=== PATIENT | female | born 1965 | race American Indian/Alaskan Native ===

== ENCOUNTER 2018-01-04 18:19 | Emergency (ER) | payer MEDICARE ==
[2018-01-04] MEDS ORDERED: ASPIRIN PO ONE (18:28)
[2018-01-04 18:50] LABS: Basophils # (Auto) 0.1 K/mm3 (0.0-0.1); Basophils % (Auto) 0.6 % (0.0-1.8); Eosinophils # (Auto) 0.1 K/mm3 (0.0-0.4); Eosinophils % (Auto) 1.2 % (0.0-4.3); Hematocrit 42.9 % (30.3-42.9); Hemoglobin 14.2 gm/dl (10.1-14.3); Lymphocytes # (Auto) 3.3 K/mm3 (1.2-5.4); Lymphocytes % (Auto) 32.5 % (13.4-35.0); Mean Corpuscular HGB Conc 33 % (30-34); Mean Corpuscular Hemoglobin 29 pg (28-32); Mean Corpuscular Volume 87 fl (79-97); Monocytes # (Auto) 0.5 K/mm3 (0.0-0.8); Monocytes % (Auto) 5.1 % (0.0-7.3); Platelet Count 388 K/mm3 (140-440); Red Blood Count 4.93 M/mm3 (3.65-5.03); Red Cell Distribution Width 13.7 % (13.2-15.2)
[2018-01-04 19:10] LABS: BUN/Creatinine Ratio 10; Blood Urea Nitrogen 11 mg/dL (7-17); Calcium 9.9 mg/dL (8.4-10.2); Hemolysis Index 11
[2018-01-04] MEDS ORDERED: TYLENOL #3 PO ONE (21:19)
[2018-01-04] MEDS ORDERED: TYLENOL PO ONE (22:09)
[2018-01-04] MEDS ORDERED: TYLENOL ONE (22:15)
--- NOTE | 2018-01-04 22:16 | XRay Report ---
FINAL REPORT PROCEDURE: XR CHEST 2 VIEW TECHNIQUE: PA and lateral chest radiographs were obtained. CPT 99780 HISTORY: CHEST PAIN IN UPPER LEFT. COMPARISON: No prior studies are available for comparison. FINDINGS: Heart: Normal. Mediastinum/Vessels: Normal. Lungs/Pleural space: Normal. Bony thorax: No acute osseous abnormality. Other: IMPRESSION: Normal examination.
--- NOTE | 2018-01-04 22:54 | Emergency Department Report ---
HPI - General Chief Complaint: Chest Pain Time Seen by Provider: 01/04/18 20:20 - HPI HPI: The patient is a 52-year-old female who presents for evaluation of left neck pain. 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 She states that after laying down, she noticed pain in the left lower neck when she got up. She states that the pain radiated to the left shoulder and left upper chest, and also to the right jaw. She states that the pain is currently mild in severity, and was sharp in quality. She denies trauma or injury to the head , neck, shoulder, or chest. She also denies headache, posterior neck pain, pressure-like chest pain, dyspnea, cough, hemoptysis, paresthesias or motor weakness in the arms or legs, syncope, unilateral leg swelling, history of DVT or PE, history of active cancer. ED Past Medical Hx - Past Medical History Hx Diabetes: Yes - Surgical History Hx Cholecystectomy: Yes Hx Appendectomy: Yes Additional Surgical History: total hysterectomy,double mastectomy, multiple breast reconstrution with infections, left shoulder - Social History Smoking Status: Never Smoker Substance Use Type: None - Medications Home Medications: Home Medications Medication Instructions Recorded Confirmed Last Taken Type Acetaminophen/Codeine [Tylenol #3] 1 tab PO Q6H PRN #15 tab 01/04/18 Unknown Rx Cyclobenzaprine HCl [Flexeril 5 MG 5 mg PO Q8HR PRN #15 tab 01/04/18 Unknown Rx TAB] ED Review of Systems ROS: Stated complaint: ARM/NECK PAIN Other details as noted in HPI Constitutional: denies: fever ENT: denies: throat or neck pain Respiratory: denies: cough, shortness of breath Cardiovascular: reports chest pain Endocrine: denies unexplained weight loss or gain Gastrointestinal: denies: abdominal pain, nausea Genitourinary: denies: dysuria Musculoskeletal: reprots neck pain denies: leg swelling Skin: denies: rash Neurological: denies: headache Hematological/Lymphatic: denies: easy bleeding or easy bruising Psych: denies sadness or hopelessness Physical Exam - Physical Exam Vital Signs: Vital Signs 01/04/18 01/04/18 18:23 20:04 Temperature 98.6 F 98.1 F Pulse Rate 112 H 91 H Respiratory 18 15 Rate Blood Pressure 129/89 Blood Pressure 110/74 [Left] O2 Sat by Pulse 100 97 Oximetry Physical Exam: General: well-nourished, well-developed, no acute distress Head: Normocephalic, atraumatic Eyes: normal sclera ENT: Mucous membranes are pink and moist Neck: left SCM tenderness to palpation present, pain is elicited with rotation of the neck to the left, no midline bony tenderness overlying the cervical thoracic spinous processes, no spinous step-off or obvious deformity, trachea midline, neck supple, No neck stiffness, no cervical adenopathy Respiratory: Breath sounds equal bilaterally, no wheezing, rales, or rhonchi Cardio: S1 and S2 present, no murmurs, rubs, gallops, capillary refill is brisk Abdomen: Normoactive bowel sounds, soft abdomen, no tenderness Chest WALL/Back: No tenderness to palpation of the chest wall, no CVA tenderness with percussion Musc: No sensation or motor deficit in the arms or legs bilaterally, pulses intact distally as well, No pitting edema Skin: No rash Neuro: no facial drooping, normal speech Psych: Normal affect ED Course Vital Signs 01/04/18 01/04/18 18:23 20:04 Temperature 98.6 F 98.1 F Pulse Rate 112 H 91 H Respiratory 18 15 Rate Blood Pressure 129/89 Blood Pressure 110/74 [Left] O2 Sat by Pulse 100 97 Oximetry ED Medical Decision Making - Lab Data Result diagrams: 01/04/18 18:30 01/04/18 18:30 - Medical Decision Making The patient was seen and examined by myself. The patient is placed on a cardiac rehab nurse and continuous pulse ox. On initial evaluation, the patient was found to be in no distress. EKG was negative for findings suggestive of acute cardiac infarct. Labs and imaging are obtained. The patient given Tegretol for her pain. Chest x-ray is negative for pneumothorax, focal consolidation, pulmonary vascular congestion, pleural effusion, or other obvious acute cardiopulmonary disease process. Lab results were non-concerning including levels of troponin, WBC, hemoglobin, hematocrit, electrolytes, renal function. Exam findings are consistent with muscle strain/torticollis. The patient was reevaluated and reported that their symptoms were markedly improved. As the patient has a JARET risk score less than 2, and a well's score less than 2, the patient is at low risk of ACS or pulmonary emboli etiology of their symptoms. The patient is stable for discharge with outpatient follow-up. The patient is given follow-up and return instructions. The patient expressed understanding and agreed with the plan. The patient is discharged in stable condition. Critical care attestation.: If time is entered above; I have spent that time in minutes in the direct care of this critically ill patient, excluding procedure time. ED Disposition Clinical Impression: Acute chest wall pain, Acute neck pain, Torticollis, acute Disposition: DC-01 TO HOME OR SELFCARE Is pt being admited?: No Does the pt Need Aspirin: No Condition: Stable Instructions: Spasmodic Torticollis (ED), Muscle Strain (ED), Musculoskeletal Pain (ED) Referrals: TASHI CRAWFORD MD [Primary Care Provider] - 3-5 Days Time of Disposition: 22:55
[2018-01-04 23:25] VITALS: BP 121/75
== END 2018-01-04 23:29 | disposition home or self-care (01) ==
LOC: ED 18:19
DX: R07.89 Other chest pain (principal); M54.2 Cervicalgia; M43.6 Torticollis; E11.9 Type 2 diabetes mellitus without complications; Z90.49 Acquired absence of other specified parts of digestive tract; Z90.710 Acquired absence of both cervix and uterus; Z90.13 Acquired absence of bilateral breasts and nipples
CPT/HCPCS: 36415; 71046; 80048; 82962; 84484; 85025; 93005; 93010